=== PATIENT | female | born 1970 | race Caucasian/White ===

== ENCOUNTER → 2017-05-21 | Outpatient (CLI) | payer BC ==
--- NOTE | ~2017-05-21 | CT5 ---
[facility] A Service of [facility] RADIOLOGY TEXT RESULTS PATIENT: AUSTYN SANTOS LOCATION: [facility] : [birth year] UNIT #: [id number] AGE: [address]: Last Kaur MD SEX: F ORDER DR: [id number] [facility]. [place], [place] [address] [id number] O MR#: [id number] Acc #: [id number] NAME: AUSTYN SANTOS : 1970 SEX: F STUDY DATE/TIME: 05/21/2017 11:18 UNIT: [facility] ROOM: STUDY DESCRIPTION: CT Abdomen W Cont Attending Physician: Last Kaur M.D. Referring Physician: Last Kaur M.D. Ordering Physician: Last Kaur M.D. Primary Care Physician: Last Kaur M.D. MEDICAL IMAGING REPORT This report is preliminary unless electronic signature is present EXAM CT of the abdomen with contrast. INDICATIONS Palpable masses in the abdomen. TECHNIQUE CT head was performed with oral and IV contrast. Coronal and sagittal reformatted images were obtained. Fish oil tablets were placed over the area of concern in the right side of the abdomen. This CT exam was performed with one or more of the following radiation dose reduction techniques: automatic exposure control, adjustment of mA and/or kV according to patient size, and iterative reconstruction. COMPARISON No comparisons. FINDINGS Lung bases are clear. Small amount of focal fatty infiltration of the liver adjacent to the falciform. Cholecystectomy. The spleen is unremarkable. The kidneys and adrenal glands and pancreas are unremarkable. There is no evidence for any mass or other abnormality in the area of concern on the right abdominal wall marked with fish oil tablets. Bone windows are unremarkable. IMPRESSION There is no abnormality in the area of concern marked with fish oil tablets along the right side of the abdomen. Dictated by... Tyree Toro M.D. [facility] A Service of [facility] RADIOLOGY TEXT RESULTS PATIENT: AUSTYN SANTOS LOCATION: [facility] : 68 UNIT #: [id number] AGE: [address]: Last Kaur MD SEX: F ORDER DR: THIS IS AN ELECTRONICALLY VERIFIED REPORT Tyree Toro M.D. at 05/24/2017 7:25 AM JADA/torri TD: 05/21/2017 21:01 JOB #: [id number] MEDICAL IMAGING REPORT Page 1 of 1 COPY
[2017-05-21 11:30] LABS: POC - CREATININE 0.82 mg/dL (0.44-1.03); POC - GFR >60.0 mL/min (>60)
== END | disposition home or self-care (01) ==
LOC: CCAT 09:30
PROVIDERS: Specialist
DX: R19.00 Intra-abdominal and pelvic swelling, mass and lump, unspecified site (principal)
CPT/HCPCS: 74160; 82565; Q9967